=== PATIENT | male | born 1995 | race Caucasian/White ===

== ENCOUNTER 2018-10-16 04:44 | Emergency (ER) | payer BC, SELFPAY ==
[2018-10-16 04:45] VITALS: BP 148/94; PULSE 65; RESP 18; TEMP 36.5; O2SAT 95; BMI 28.6
--- NOTE | 2018-10-16 05:01 | ED.VIS.GEN ---
History of Present Illness Chief Complaint: Flank Pain Informant: Patient, Family Narrative: She said he woke up in the mother 9-hour ago with lower back pain. Is a sharp pain worse with movement. Hurts to bend and stand straight up. He is never injured this before. No injury that he can remember. It is definitely movement related. Initially thought he might be passing a kidney stone. He has no flank pain. He has no blood in his urine. No urinary symptoms. No significant pain at rest. No home treatment. He is not sure if he slept on it wrong. Current severity is moderate. No nausea or vomiting. No diarrhea. Past Medical History - Allergies and Home Meds Allergies/Adverse Reactions: Allergies No Known Allergies Allergy (Verified 10/16/18 04:48) Primary Care Physician: Vince Woo MD [Primary Care Provider] - Prior records reviewed: Yes Past Medical History: None Surgical History: - - Reviewed Lives: With Family Smoking Status: Never smoker Alcohol: None Drugs: None Review of Systems General: Denies: Chills, Fever, Sweats Eyes: Denies: Visual changes - bilaterally, Diplopia ENT: Denies: Rhinorrhea, Sore throat Cardiovascular: Denies: Chest pain, Palpitations Respiratory: Denies: Dyspnea, Cough, Dyspnea on exertion Gastrointestinal: Denies: Abdominal pain, Nausea, Vomiting, Diarrhea, Melena, Hematochezia Genitourinary: Denies: Dysuria, Hematuria, Frequency Musculoskeletal: Reports: Back pain. Denies: Extremity Pain Skin: Denies: Rash, Wounds Neurological: Denies: Headache, Weakness, Numbness Physical Exam Vital Signs/Narrative: Vital Signs Temp Pulse Resp BP Pulse Ox 10/16/18 04:45 97.7 F L 65 18 148/94 H 95 General: Well nourished, Well developed, No Acute Distress Head: Normocephalic, Atraumatic Eyes: Perrl, EOMI ENT: Moist mucous membranes, No rhinorrhea Neck: Supple, Nontender Cardiovascular: Regular rate, Regular rhythm, No murmurs Respiratory: No distress, CTA bilaterally, Chest nontender Abdomen: Soft, Nontender, Nondistended, Normal bowel sounds Back: Normal Inspection, - - Left lower lumbar paraspinal tenderness pinpoint. Decreased range of motion with pain with standing in this area.. Negative for: Nontender Extremities: Nontender, No edema Skin: Normal color, No rash Neurological: Alert, Oriented x3, Cranial nerves II-XII grossly intact, Normal Strength, Normal Sensation Psychological: Normal affect, Normal Mood Diagnostic/Tx/Re-eval - Medical Decision Making This time I feel the patient is a left paraspinal low back strain. Given a dose of morphine and Toradol as nursing establish an IV line applied upon arrival. I do not feel he is a kidney stone. This is movement related musculoskeletal pain. He will use ibuprofen at home and ice and rest. ED Disposition - Plan for ED Patient: Disposition: Home or Assisted Living Diagnosis: Lumbar back sprain Instructions: ED Sprain Strain Lumbar Referrals: Vince Woo MD [Primary Care Provider] -
[2018-10-16] MEDS: Ketorolac 30 MG/ML Syringe IV (05:08)
[2018-10-16 05:31] VITALS: BP 149/87; PULSE 65; O2SAT 96
== END 2018-10-16 05:33 | disposition home or self-care (01) ==
PROVIDERS: Emergency Provider Emergency Medicine; Family Provider Family Medicine; PCP Family Medicine
DX: S33.5XXA Sprain of ligaments of lumbar spine, initial encounter (principal); X58.XXXA Exposure to other specified factors, initial encounter; Y93.9 Activity, unspecified; Y92.89 Other specified places as the place of occurrence of the external cause; Y99.9 Unspecified external cause status
CPT/HCPCS: 96374; 96375; 99282; A4216